=== PATIENT | female | born 1985 | race Caucasian/White ===

== ENCOUNTER 2017-02-01 00:25 | Emergency (ER) | payer SELFPAY ==
[~2017-02-01] VITALS: Ht 167.6 cm; Wt 123.0 kg
[~2017-02-01 00:25] MED LIST: AUGMENTIN875 MG PO; BACTRIM,SEPT1 TABLET PO; CLEOCIN300 MG PO; COLACE100 MG PO; FLEXERIL10 MG PO; KEFLEX500 MG PO; LORTAB 5-325 M1 EACH PO; NAPROSYN500 MG PO; NORCO 5/3251 TABLET PO; PERIDEX1 ML MM; SENNA8.6 M1 PO; ULTRAM50 MG PO; VICODIN,LORT1 TABLET PO
[2017-02-01] MEDS ORDERED: NAPROXEN500 MG PO (02:17)
[2017-02-01 02:27] VITALS: BP 108/73
== END 2017-02-01 02:28 | disposition home or self-care (01) ==
LOC: EXP 00:25 → EME 00:25 → EXP 02:28
DX: M70.831 Other soft tissue disorders related to use, overuse and pressure, right forearm (principal); Y93.D9 Activity, other involving arts and handcrafts
CPT/HCPCS: 99281; 99284